=== PATIENT | male | born 1995 | race Two or more races ===

== ENCOUNTER 2018-09-17 14:44 | Emergency (ER) | payer OTHER ==
[2018-09-17] MEDS ORDERED: NS 0.9% 1000 ML** 1,000 ML IV ONE ×2 (14:57→15:58)
[2018-09-17 15:22] LABS: ABS Lymphocytes 1.1 10^3/ul (1.0-4.8); ABS Monocytes 0.7 10^3/ul (0-0.8); ABS Neutrophils 10.9 10^3/ul (1.5-7.7); Hematocrit 47 % (42-52); Hemoglobin 16.2 g/dL (14.0-18.0); Lymphocyte % 8.6 %; Mean Corpuscular HGB Conc 34 g/dL (31-36); Mean Corpuscular Hemoglobin 30 pg (27-31); Mean Corpuscular Volume 86 fL (80-94); Mean Platelet Volume 7.3 fL (7.4-10.4); Nucleated Red Blood Cells % 0.1; Platelet Count 346 10^3/uL (150-450); Red Blood Count 5.49 10^6 /uL (4.18-5.48); Red Cell Distribution Width 13 % (10.5-15); White Blood Count 12.7 10^3/uL (3.5-10.8)
[2018-09-17 15:35] LABS: ALT 18 U/L (7-52); AST 23 U/L (13-39); Albumin 5.1 g/dL (3.2-5.2); Albumin/Globulin Ratio 1.9 (1-3); Alkaline Phosphatase 62 U/L (34-104); Anion Gap 14 mmol/L (2-11); Blood Urea Nitrogen 16 mg/dL (6-24); CO2 Carbon Dioxide 21 mmol/L (22-32); Chloride 104 mmol/L (101-111); Creatine Kinase 179 U/L (10-223); EGFR African American 114.1 (>60); EGFR Non-African American 94.3 (>60); Globulin 2.7 g/dL (2-4); Glucose 190 mg/dL (70-100); Potassium 3.1 mmol/L (3.5-5.0); Sodium 139 mmol/L (135-145); Total Protein 7.8 g/dL (6.4-8.9)
[2018-09-17 15:55] LABS: Alcohol < 10 mg/dL (<10)
--- NOTE | 2018-09-17 16:32 | ED ---
Substance Abuse/Use - HPI Summary HPI Summary: Patient is a 22-year-old male presenting to the [place] [facility] [place] with [place]. He denies any alcohol use on this date, but states he took approximately 2 tabs of acid. He states he has taken acid in the past, however this never had a reaction. He denies other drug use on this date. He was uncooperative for [employer] prior to arrival and arrives in handcuffs. He states he was agitated prior to coming here, but feels improved now. He is unable to speak in full sentences, he is alert to person, place, however not time. He is using inappropriate words on arrival. He denies any past medical history. He states he uses acid infrequently, but has been the past. Patient was with friends this afternoon. He denies any trauma, falls, pain, head injury or LOC. He denies any CP or SOB. - History Of Current Complaint Chief Complaint: EDSubstanceAbuse Stated Complaint: 2209, SUBSTANCE ABUSE PER EMS Time Seen by Provider: 09/17/18 14:49 Hx Obtained From: Patient Onset/Duration of Drug/ETOH Abuse: Hours Ingestion History: Type/Name Of Drug - acid Overdose Characteristics: Oral Timing Of Abuse: Binge Use - Just today Severity Initially: Moderate Severity Currently: Mild Character: Angry, Frustrated - Prior to arrival Aggravating Factor(s): Nothing Alleviating Factor(s): Nothing Associated Signs And Symptoms: Hostile - Prior to arrival, Agitated, Intentional Ingestion - Risk Factor(s) Completed Suicide Risk Factors: Negative - Allergies/Home Medications Allergies/Adverse Reactions: Allergies Allergy/AdvReac Type Severity Reaction Status Date / Time No Known Allergies Allergy Verified 09/21/15 13:23 Home Medications: Home Medications NK [No Home Medications Reported] 09/17/18 [History Confirmed 09/17/18] PMH/Surg Hx/FS Hx/Imm Hx Previously Healthy: Yes Infectious Disease History: No Infectious Disease History: Denies: Traveled Outside the [place] in Last 30 Days - Social History Occupation: Unemployed, Student Lives: Dormitory/Roommates Alcohol Use: Rare Hx Substance Use: Yes - acid Substance Use Type: Reports: Other Hx Tobacco Use: No Smoking Status (MU): Never Smoked Tobacco Review of Systems Constitutional: Negative Negative: Fever, Chills, Fatigue, Skin Diaphoresis Negative: Blurred Vision, Diplopia Negative: Chest Pain Negative: Shortness Of Breath, Cough Genitourinary: Negative Positive: no symptoms reported, see HPI Negative: Arthralgia, Myalgia Negative: Headache, Syncope All Other Systems Reviewed And Are Negative: Yes Physical Exam Triage Information Reviewed: Yes Vital Signs On Initial Exam: Initial Vitals Temp Pulse Resp BP Pulse Ox 100 F 138 20 151/90 97 09/17/18 14:48 09/17/18 14:48 09/17/18 14:48 09/17/18 14:48 09/17/18 14:48 Vital Signs Reviewed: Yes Completion Of Physical Exam Limited Due To: Altered Mental Status Skin: Positive: Skin Color Reflects Adequate Perfusion Head/Face: Positive: Normal Head/Face Inspection Eyes: Positive: EOMI, Conjunctiva Clear Neck: Positive: Supple, No Lymphadenopathy Respiratory/Lung Sounds: Positive: Clear to Auscultation, Breath Sounds Present Cardiovascular: Positive: Tachycardia Musculoskeletal: Positive: Strength/ROM Intact Neurological: Positive: Other - Inappropriate words, inappropriate speech and responses, alert and oriented to person place and time. Normal gait. Diagnostics - Vital Signs Vital Signs Temp Pulse Resp BP Pulse Ox 09/17/18 14:48 100 F 138 20 151/90 97 - Laboratory Lab Results: Lab Results 09/17/18 09/17/18 09/17/18 Range/Units 15:09 15:09 15:09 WBC 12.7 H (3.5-10.8) 10^3/uL RBC 5.49 H (4.18-5.48) 10^6 /uL Hgb 16.2 (14.0-18.0) g/dL Hct 47 (42-52) % MCV 86 (80-94) fL MCH 30 (27-31) pg MCHC 34 (31-36) g/dL RDW 13 (10.5-15) % Plt Count 346 (150-450) 10^3/uL MPV 7.3 L (7.4-10.4) fL Neut % (Auto) 85.8 % Lymph % (Auto) 8.6 % Stafford % (Auto) 5.3 % Eos % (Auto) 0.0 % Baso % (Auto) 0.3 % Absolute Neuts (auto) 10.9 H (1.5-7.7) 10^3/ul Absolute Lymphs (auto) 1.1 (1.0-4.8) 10^3/ul Absolute Monos (auto) 0.7 (0-0.8) 10^3/ul Absolute Eos (auto) 0.0 (0-0.6) 10^3/ul Absolute Basos (auto) 0.0 (0-0.2) 10^3/ul Absolute Nucleated RBC 0.0 10^3/ul Nucleated RBC % 0.1 Sodium 139 (135-145) mmol/L Potassium 3.1 L (3.5-5.0) mmol/L Chloride 104 (101-111) mmol/L Carbon Dioxide 21 L (22-32) mmol/L Anion Gap 14 H (2-11) mmol/L BUN 16 (6-24) mg/dL Creatinine 1.00 (0.67-1.17) mg/dL Est GFR ( Amer) 114.1 (>60) Est GFR (Non-Af Amer) 94.3 (>60) BUN/Creatinine Ratio 16.0 (8-20) Glucose 190 H (70-100) mg/dL Lactic Acid 3.2 H* (0.5-2.0) mmol/L Calcium 10.0 (8.6-10.3) mg/dL Total Bilirubin 0.60 (0.2-1.0) mg/dL AST 23 (13-39) U/L ALT 18 (7-52) U/L Alkaline Phosphatase 62 (34-104) U/L Total Creatine Kinase 179 (10-223) U/L Total Protein 7.8 (6.4-8.9) g/dL Albumin 5.1 (3.2-5.2) g/dL Globulin 2.7 (2-4) g/dL Albumin/Globulin Ratio 1.9 (1-3) Serum Alcohol < 10 (<10) mg/dL Result Diagrams: 09/17/18 15:09 09/17/18 15:09 Lab Statement: Any lab studies that have been ordered have been reviewed, and results considered in the medical decision making process. Course/Dx - Course Course Of Treatment: During his course of treatment, the patient is evaluated for drug use. He denies any alcohol use. On arrival, he is noted to be tachycardic and 2 L fluids are given. He denies any nausea, vomiting, body aches, headache, or trauma otherwise. He states he took "too much acid." He was resisting arrest and uncooperative for [employer] prior to arrival, however on arrival to [facility] [place], he is cooperating well and handcuffs are discontinued. He is having slurred speech and inappropriate words. He is kept under observation for nearly 6 hours and is OK for discharge at this time. He is answering questions appropriately, alert and oriented. Ambulating well. Drinking and eating. He will be discharged home with LSD use. - Diagnoses Provider Diagnoses: LSD reaction Discharge - Sign-Out/Discharge Documenting (check all that apply): Patient Departure Patient Received Moderate/Deep Sedation with Procedure: No - Discharge Plan Condition: Stable Disposition: HOME Patient Education Materials: Polysubstance Abuse (ED) Referrals: No Primary Care Phys,NOPCP [Primary Care Provider] - Additional Instructions: Do not do drugs Do not drink alcohol Drink plenty of water Rest today - Billing Disposition and Condition Condition: STABLE Disposition: Home
[2018-09-17 17:15] LABS: Urine Benzodiazepine Screen None Detected (None Detect); Urine Opiates Screen None Detected (None Detect)
[2018-09-17 20:22] VITALS: BP 142/72
== END 2018-09-17 20:20 | disposition home or self-care (01) ==
LOC: ED 14:44
DX: F16.929 Hallucinogen use, unspecified with intoxication, unspecified (principal)
CPT/HCPCS: 36415; 80053; 80307; 80320; 82550; 83605; 85025; 96360; 96361; 99282; G0480

== ENCOUNTER 2019-03-27 23:55 | Emergency (ER) | payer OTHER ==
[2019-03-28] MEDS ORDERED: LORazepam INJ* 2 MG/ML 1 ML VIAL IV PUSH ONE (00:34)
[2019-03-28] MEDS ORDERED: NS 0.9% 1000 ML** 2,000 ML IV ONE (00:34)
[2019-03-28] MEDS ORDERED: Lorazepam PYXIS KEY PRN (00:34)
[2019-03-28 01:05] LABS: ABS Lymphocytes 1.7 10^3/ul (1.0-4.8); ABS Monocytes 1.2 10^3/ul (0-0.8); ABS Neutrophils 7.5 10^3/ul (1.5-7.7); Eosinophil % 0.4 %; Hematocrit 51 % (42-52); Hemoglobin 17.7 g/dL (14.0-18.0); Lymphocyte % 16.6 %; Mean Corpuscular HGB Conc 35 g/dL (31-36); Mean Corpuscular Hemoglobin 29 pg (27-31); Mean Corpuscular Volume 84 fL (80-94); Mean Platelet Volume 7.1 fL (7.4-10.4); Nucleated Red Blood Cells % 0.1; Platelet Count 345 10^3/uL (150-450); Red Blood Count 6.08 10^6 /uL (4.18-5.48); Red Cell Distribution Width 13 % (10-15); White Blood Count 10.5 10^3/uL (3.5-10.8)
[2019-03-28 01:13] LABS: INR 1.07 (0.82-1.09)
[2019-03-28 01:23] LABS: ALT 17 U/L (7-52); AST 23 U/L (13-39); Albumin 4.9 g/dL (3.2-5.2); Albumin/Globulin Ratio 1.8 (1-3); Alkaline Phosphatase 66 U/L (34-104); Anion Gap 11 mmol/L (2-11); BUN/Creatinine Ratio 11.3 (8-20); Blood Urea Nitrogen 11 mg/dL (6-24); CO2 Carbon Dioxide 22 mmol/L (22-32); Calcium 10.3 mg/dL (8.6-10.3); Chloride 101 mmol/L (101-111); Creatine Kinase 271 U/L (10-223); EGFR African American 117.1 (>60); EGFR Non-African American 96.8 (>60); Globulin 2.8 g/dL (2-4); Glucose 120 mg/dL (70-100); Magnesium 2.3 mg/dL (1.9-2.7); Potassium 3.5 mmol/L (3.5-5.0); Sodium 134 mmol/L (135-145); Total Protein 7.7 g/dL (6.4-8.9)
[2019-03-28 01:24] LABS: Troponin I 0.01 ng/mL (<0.04)
--- NOTE | 2019-03-28 01:36 | ED ---
Substance Abuse/Use - HPI Summary HPI Summary: 23-year-old male presents with agitation for the past 2 days. He states he took sarai and cocaine two days ago and drank some alcohol 2 days ago. He states that he hasn't felt right since. They recently increased his Prozac dose to 40mg this week. He states he cannot sleep. He denies any chest pressures or shortness breath. admits to a tremor since taking the drugs. only has smoked marijuana since. He states he was having some blood in his urine. He admits to generalized muscle aches. - History Of Current Complaint Chief Complaint: EDSubstanceAbuse Stated Complaint: CANT SLEEP/POSS FEVER PER PT Time Seen by Provider: 03/28/19 00:27 - Allergies/Home Medications Allergies/Adverse Reactions: Allergies Allergy/AdvReac Type Severity Reaction Status Date / Time No Known Allergies Allergy Verified 09/21/15 13:23 Home Medications: Home Medications Fluoxetine HCl [Prozac] 20 mg PO DAILY 03/28/19 [History Confirmed 03/28/19] PMH/Surg Hx/FS Hx/Imm Hx Endocrine/Hematology History: Denies: Hx Anticoagulant Therapy Respiratory History: Denies: Hx Asthma Infectious Disease History: No Infectious Disease History: Denies: Traveled Outside the [place] in Last 30 Days - Family History Known Family History: Positive: Non-Contributory - Social History Alcohol Use: Rare Hx Substance Use: Yes - acid Substance Use Type: Reports: Other Hx Tobacco Use: No Smoking Status (MU): Never Smoked Tobacco Review of Systems Negative: Fever Positive: Palpitations. Negative: Chest Pain Negative: Shortness Of Breath Neurological: Other - shaky All Other Systems Reviewed And Are Negative: Yes Physical Exam Triage Information Reviewed: Yes Vital Signs On Initial Exam: Initial Vitals Temp Pulse Resp BP Pulse Ox 98.3 F 130 20 167/109 98 03/28/19 00:00 03/28/19 00:00 03/28/19 00:00 03/28/19 00:00 03/28/19 00:00 Vital Signs Reviewed: Yes Skin: Positive: Warm, Dry Head/Face: Positive: Normal Head/Face Inspection Eyes: Positive: Normal, EOMI, CHANDLER, Conjunctiva Clear, Other: - nystagmus noted ENT: Positive: Pharynx normal Respiratory/Lung Sounds: Positive: Clear to Auscultation, Breath Sounds Present Cardiovascular: Positive: Normal, RRR Abdomen Description: Positive: Nontender, Soft Bowel Sounds: Positive: Present Musculoskeletal: Positive: Normal Neurological: Positive: Sensory/Motor Intact, Alert, Oriented to Person Place, Time, CN Intact II-III, Abnormal Reflex @ - hyperreflexia of patella, Other - tremor present Psychiatric: Positive: Anxious Procedures - Sedation Patient Received Moderate/Deep Sedation with Procedure: No Diagnostics - Vital Signs Vital Signs Temp Pulse Resp BP Pulse Ox 03/28/19 01:33 20 03/28/19 00:19 23 03/28/19 00:00 98.3 F 130 20 167/109 98 - Laboratory Lab Results: Lab Results 03/28/19 03/28/19 03/28/19 Range/Units 00:59 00:59 00:59 WBC 10.5 (3.5-10.8) 10^3/uL RBC 6.08 H (4.18-5.48) 10^6 /uL Hgb 17.7 (14.0-18.0) g/dL Hct 51 (42-52) % MCV 84 (80-94) fL MCH 29 (27-31) pg MCHC 35 (31-36) g/dL RDW 13 (10-15) % Plt Count 345 (150-450) 10^3/uL MPV 7.1 L (7.4-10.4) fL Neut % (Auto) 71.4 % Lymph % (Auto) 16.6 % [place] % (Auto) 11.4 % Eos % (Auto) 0.4 % Baso % (Auto) 0.2 % Absolute Neuts (auto) 7.5 (1.5-7.7) 10^3/ul Absolute Lymphs (auto) 1.7 (1.0-4.8) 10^3/ul Absolute Monos (auto) 1.2 H (0-0.8) 10^3/ul Absolute Eos (auto) 0.0 (0-0.6) 10^3/ul Absolute Basos (auto) 0.0 (0-0.2) 10^3/ul Absolute Nucleated RBC 0.0 10^3/ul Nucleated RBC % 0.1 INR (Anticoag Therapy) 1.07 (0.82-1.09) Sodium 134 L (135-145) mmol/L Potassium 3.5 (3.5-5.0) mmol/L Chloride 101 (101-111) mmol/L Carbon Dioxide 22 (22-32) mmol/L Anion Gap 11 (2-11) mmol/L BUN 11 (6-24) mg/dL Creatinine 0.97 (0.67-1.17) mg/dL Est GFR ( Amer) 117.1 (>60) Est GFR (Non-Af Amer) 96.8 (>60) BUN/Creatinine Ratio 11.3 (8-20) Glucose 120 H (70-100) mg/dL Lactic Acid (0.5-2.0) mmol/L Calcium 10.3 (8.6-10.3) mg/dL Magnesium 2.3 (1.9-2.7) mg/dL Total Bilirubin 1.80 H (0.2-1.0) mg/dL AST 23 (13-39) U/L ALT 17 (7-52) U/L Alkaline Phosphatase 66 (34-104) U/L Total Creatine Kinase 271 H (10-223) U/L Troponin I 0.01 (<0.04) ng/mL Total Protein 7.7 (6.4-8.9) g/dL Albumin 4.9 (3.2-5.2) g/dL Globulin 2.8 (2-4) g/dL Albumin/Globulin Ratio 1.8 (1-3) Serum Alcohol Pending 03/28/19 Range/Units 00:59 WBC (3.5-10.8) 10^3/uL RBC (4.18-5.48) 10^6 /uL Hgb (14.0-18.0) g/dL Hct (42-52) % MCV (80-94) fL MCH (27-31) pg MCHC (31-36) g/dL RDW (10-15) % Plt Count (150-450) 10^3/uL MPV (7.4-10.4) fL Neut % (Auto) % Lymph % (Auto) % Laurens % (Auto) % Eos % (Auto) % Baso % (Auto) % Absolute Neuts (auto) (1.5-7.7) 10^3/ul Absolute Lymphs (auto) (1.0-4.8) 10^3/ul Absolute Monos (auto) (0-0.8) 10^3/ul Absolute Eos (auto) (0-0.6) 10^3/ul Absolute Basos (auto) (0-0.2) 10^3/ul Absolute Nucleated RBC 10^3/ul Nucleated RBC % INR (Anticoag Therapy) (0.82-1.09) Sodium (135-145) mmol/L Potassium (3.5-5.0) mmol/L Chloride (101-111) mmol/L Carbon Dioxide (22-32) mmol/L Anion Gap (2-11) mmol/L BUN (6-24) mg/dL Creatinine (0.67-1.17) mg/dL Est GFR ( Amer) (>60) Est GFR (Non-Af Amer) (>60) BUN/Creatinine Ratio (8-20) Glucose (70-100) mg/dL Lactic Acid 1.0 (0.5-2.0) mmol/L Calcium (8.6-10.3) mg/dL Magnesium (1.9-2.7) mg/dL Total Bilirubin (0.2-1.0) mg/dL AST (13-39) U/L ALT (7-52) U/L Alkaline Phosphatase (34-104) U/L Total Creatine Kinase (10-223) U/L Troponin I (<0.04) ng/mL Total Protein (6.4-8.9) g/dL Albumin (3.2-5.2) g/dL Globulin (2-4) g/dL Albumin/Globulin Ratio (1-3) Serum Alcohol Result Diagrams: 03/28/19 00:59 03/28/19 00:59 Lab Statement: Any lab studies that have been ordered have been reviewed, and results considered in the medical decision making process. Course/Dx - Course Course Of Treatment: 23-year-old male presents with agitation for the past 2 days. He states he took sarai and cocaine two days ago and drank some alcohol 2 days ago. He states that he hasn't felt right since. They recently increased his Prozac dose to 40mg this week. He states he cannot sleep. He denies any chest pressures or shortness breath. admits to a tremor since taking the drugs. only has smoked marijuana since. He states he was having some blood in his urine. He admits to generalized muscle aches. On exam has hyperreflexia. Has nystagmus noted. Has a resting tremor. wbc normal. Patient is consistently tachycardic here gave fluids and ativan and tachycardic improved. With all these symptoms and Sarai plus Prozac has a risk of serotonin syndrome. Discussed with Dr. Hernandez. spoke with Dr Jain who will consult. patient will be signed out to dr hernandez pending hospitalist consult. - Diagnoses Differential Diagnosis/HQI/PQRI: Positive: Drug Abuse, Metabolic Disorder, Other - serotonin syndrome Provider Diagnoses: Polysubstance abuse Discharge ED - Sign-Out/Discharge Documenting (check all that apply): Sign-Out Patient Signing out patient TO: Keith Hernandez - Discharge Plan Condition: Good Disposition: HOME Prescriptions: hydrOXYzine pamoate [Vistaril] 50 mg PO QPM PRN #15 capsule PRN Reason: Sleep Patient Education Materials: Cocaine Abuse (ED), Insomnia (ED) Referrals: [facility] [Outside] - Billing Disposition and Condition Condition: GOOD Disposition: Home
[2019-03-28 01:38] LABS: Alcohol < 10 mg/dL (<10)
[2019-03-28 01:50] LABS: Urine Appearance Clear; Urine Color Colorless
[2019-03-28 01:57] LABS: Urine Bacteria Absent (Absent); Urine Red Blood Cell Absent (Absent); Urine Specific Gravity 1.005 (1.010-1.030); Urine White Blood Cell Absent (Absent)
[2019-03-28 01:58] LABS: Urine Bilirubin Negative (Negative); Urine Blood Negative (Negative); Urine Glucose Negative (Negative); Urine Ketones 1+ (Negative); Urine Nitrite Negative (Negative); Urine Protein Negative (Negative); Urine Urobilinogen Negative (Negative)
[2019-03-28 02:07] LABS: Urine Benzodiazepine Screen None Detected (None Detect); Urine Opiates Screen None Detected (None Detect)
--- NOTE | 2019-03-28 05:27 | ED ---
Progress - Progress Note Progress Note: This pt is a sign out to Dr. Johns from [facility] at shift change 0300 03/28/19 pending Hospitalist consult and disposition. Course/Dx - Course Course Of Treatment: This pt is a sign out to Dr. Johns from [facility] at shift change 0300 03/28/19 pending Hospitalist consult and disposition. The hospitalist, Dr. Jain, came to evaluate the patient and did not think he had serotonin syndrome and could be safely discharged. - Diagnoses Provider Diagnoses: Polysubstance abuse Discharge ED - Sign-Out/Discharge Documenting (check all that apply): Patient Departure - Discharge Plan Condition: Good Disposition: HOME Prescriptions: hydrOXYzine pamoate [Vistaril] 50 mg PO QPM PRN #15 capsule PRN Reason: Sleep Patient Education Materials: Cocaine Abuse (ED), Insomnia (ED) Referrals: [facility] [Outside] - Billing Disposition and Condition Condition: GOOD Disposition: Home - Attestation Statements Document Initiated by Richarde: Yes Documenting Scribe: Saleem Israel Provider For Whom Nisha is Documenting (Include Credential): Angelina Johns MD Scribe Attestation: ISaleem, scribed for Angelina Johns MD on 03/31/19 at 1736. Scribe Documentation Reviewed: Yes Provider Attestation: The documentation as recorded by the Saleem aguila accurately reflects the service I personally performed and the decisions made by me, Angelina Johns MD Status of Scribe Document: Viewed
[2019-03-28] MEDS ORDERED: hydrOXYzine HCL TAB* 50 MG PO ONE (06:26)
--- NOTE | 2019-03-28 07:24 | ED ---
Progress - Progress Note Progress Note: This patient was signed out from Dr. Johns to Dr. Diane at 0700 on 03/28/19, pending disposition, awaiting consult from hospitalist. The patients condition is stable and will be discharged to home with Dx of polysubstance abuse. Course/Dx - Course Course Of Treatment: This patient was signed out from Dr. Johns to Dr. Diane at 0700 on 03/28/19, pending disposition, awaiting consult from hospitalist. The patients condition is stable and will be discharged to home with Dx of polysubstance abuse. - Diagnoses Provider Diagnoses: Polysubstance abuse Discharge ED - Sign-Out/Discharge Documenting (check all that apply): Patient Departure - Discharge - Discharge Plan Condition: Good Disposition: HOME Prescriptions: hydrOXYzine pamoate [Vistaril] 50 mg PO QPM PRN #15 capsule PRN Reason: Sleep Patient Education Materials: Cocaine Abuse (ED), Insomnia (ED) Referrals: [facility] [Outside] - Attestation Statements Document Initiated by Scribe: Yes Documenting Scribe: Dominga Looney Provider For Whom Scribe is Documenting (Include Credential): Casa Diane MD Scribe Attestation: Dominga Craven, scribed for Casa Diane MD on 03/28/19 at 0739. Status of Scribe Document: Ready
[2019-03-28 07:35] VITALS: BP 141/101
== END 2019-03-28 07:30 | disposition home or self-care (01) ==
LOC: ED 23:55
DX: F19.10 Other psychoactive substance abuse, uncomplicated (principal); Z72.89 Other problems related to lifestyle; M79.10 Myalgia, unspecified site; R29.2 Abnormal reflex; H55.00 Unspecified nystagmus; R25.1 Tremor, unspecified; R00.0 Tachycardia, unspecified; Z79.899 Other long term (current) drug therapy
CPT/HCPCS: 36415; 80053; 80307; 80320; 81003; 82550; 83605; 83735; 84484; 85025; 85610; 93005; 96361; 96374; 99284; A9270-GY; G0480; J2060